=== PATIENT | male | born 1955 | race Caucasian/White ===

== ENCOUNTER 2023-10-24 10:47 | Emergency (ER) | payer BC, MEDICARE ==
[~2023-10-24] VITALS: Ht 162.6 cm; Wt 57.0 kg
[~2023-10-24 10:47] MED LIST: ACTOS; ATENOLOL; LISINOPRIL
[2023-10-24 10:53] VITALS: BP 110/62; PULSE 90; RESP 18; TEMP 97.8; O2SAT 100
[2023-10-24] MEDS: MECLIZINE 25MG TABLET PO ONE (11:15)
[2023-10-24 11:33] LABS: BASOPHILS % 0.9 % (0.0-2.0); EOSINOPHILS % 0.4 % (0.0-5.0); HEMATOCRIT. 27.3 % (42.0-52.0); LYMPHOCYTES % 20.8 % (20.0-50.0); MEAN CORPUSCULAR HEMOGLOBIN 30.3 pg (28.0-32.0); MEAN CORPUSCULAR HGB CONC 32.8 g/dL (31.0-37.0); MEAN CORPUSCULAR VOLUME 92.5 fL (80.0-94.0); MEAN PLATELET VOLUME 7.5 fl (7.4-10.4); MONOCYTES % 5.7 % (2.0-8.0); NEUTROPHILS % 72.2 % (40.0-76.0); PLATELET 319 x1000/uL (130-400); RED BLOOD CELL COUNT 2.96 mill/uL (4.7-6.1); RED CELL DISTRIBUTION WIDTH 13.7 % (11.6-14.6); WHITE BLOOD COUNT 12.1 x1000/uL (4.5-11.0)
[2023-10-24 11:46] LABS: CARBON DIOXIDE 23 mEq/L (21-32); CHLORIDE 101 mEq/L (98-107); SODIUM 136 mEq/L (136-145)
[2023-10-24 11:47] LABS: CALCIUM 9.2 mg/dL (8.7-10.4)
[2023-10-24 11:52] LABS: CREATININE 0.8 mg/dL (0.6-1.3); GLUCOSE 261 mg/dL (70-105); UREA NITROGEN BLOOD 28 mg/dL (9-23)
[2023-10-24 11:53] LABS: ALANINE AMINOTRANSFERASE 11 IU/L (10-49); ALBUMIN 4.1 g/dL (3.2-4.8); ASPARTATE AMINOTRANSFERASE 10 IU/L (<34)
[2023-10-24 11:54] LABS: BILIRUBIN TOTAL 0.3 mg/dL (0.1-1.0)
[2023-10-24 12:05] LABS: CLARITY URINE CLEAR (CLEAR); COLOR URINE YELLOW (YELLOW); GLUCOSE URINE 3+ (NEGATIVE); KETONES URINE 2+ (NEGATIVE); LEUKOCYTE ESTERASE URINE NEGATIVE (NEGATIVE); NITRITE URINE NEGATIVE (NEGATIVE); OCCULT BLOOD URINE NEGATIVE (NEGATIVE); PROTEIN URINE NEGATIVE (NEGATIVE); SPECIFIC GRAVITY URINE 1.031 (1.005-1.030); UROBILINOGEN URINE 0.2 E.U./dL (0.2-1.0)
[2023-10-24 12:57] LABS: SQUAMOUS EPITHELIAL CELL URINE 1+ /lpf (RARE/1+)
[2023-10-24 12:58] LABS: BACTERIA URINE 3+
[2023-10-24 12:59] LABS: RBC URINE NONE SEEN /hpf (0-2); WBC URINE 0-2 /hpf (0-2)
[2023-10-24] MEDS: PANTOPRAZOLE 40MG DR TABLET PO ONE (13:25)
[2023-10-24] MEDS: MAGNESIUM/ALUMINUM HYDROXIDE/SIMETHICONE 30ML UDC PO ONE (13:25)
[2023-10-24] MEDS: ONDANSETRON 4MG ODT PO ONE (13:25)
[2023-10-24] MEDS: MECLIZINE 12.5MG TABLET PO NR (13:26)
== END 2023-10-24 16:29 | disposition home or self-care (01) ==
LOC: ER 10:47
DX: R42 Dizziness and giddiness (principal); R73.9 Hyperglycemia, unspecified; I10 Essential (primary) hypertension; Z98.890 Other specified postprocedural states
CPT/HCPCS: 99284; 70450; 71045; 80053; 81003; 83690; 85025; 36415; J8597; Q0162